=== PATIENT | female | born 1975 | race Caucasian/White ===

== ENCOUNTER → 2016-10-14 | Outpatient (CLI) | payer OTHER ==
--- NOTE | 2016-10-14 12:28 | PN ---
DATE OF SERVICE: 10/14/2016 A 41-year-old lady had been followed in the sleep center for treatment of extremely severe obstructive sleep apnea-hypopnea syndrome. I discussed with the patient results of home sleep apnea test and it showed severe obstructive sleep apnea. Presently, patient has automatic CPAP unit and she brought her CPAP equipment with her. She feels significantly better with CPAP. Sleeps better and feels better during the day. [place] Sleepiness Scale is in normal range 5. I checked her CPAP unit. This is an automatic regimen that ranged between 5 and 20. Average pressure is 13.8, according to the machine. Patient demonstrated 100% compliance with treatment 30 out of 30 nights for more than 4 hours. Average usage is 7.0 hours. No significant leak. It is only 7 L per minute. Apnea-hypopnea index 1.6. Sometimes there is condensation of water in the tube connected to the mask. I believe no condensation of the tube, all the water in the long tube because it is heated, but the short tube which connected to the mask has condensate inside. Apnea-hypopnea index from the machine is only 1.6, which is in a perfect range. MEDICATIONS: Cymbalta, metformin, Singulair. During physical exam, the patient is in no distress. VITAL SIGNS: BP 159/92 on the right arm, 150/85 on the left arm, weight 341, HR 102, temperature 98.5, RR 16, oxygen saturation at room air 97%. HEENT: PERRLA, EOMI. Oropharynx low position of soft palate. Neck: Supple. No JVD. Thyroid is not palpable. LUNGS: Clear to percussion and to auscultation. Good air exchange. No wheezing or rhonchi. HEART: S1, S2 regular. No murmurs, gallops, or rubs. ABDOMEN: Obese. EXTREMITIES: Very minimal ankle edema. [employer]: Awake, alert, and oriented x3. Cranial nerves 2 to 7 intact. There is no fasciculation or atrophy noted. No focal deficits observed. IMPRESSION: 1. Extremely severe obstructive sleep apnea-hypopnea syndrome. Apnea-hypopnea index 81.5 with oxygen desaturation to 81%, on control with CPAP with average pressure around 12 cm of water. Patient demonstrated 100% compliance with treatment benefiting from treatment. 2. Obesity. 3. Diabetes mellitus. 4. Depression. 5. Allergies. PLAN: 1. Continue treatment with CPAP every night for the whole night. 2. I adjusted heating in the machine down to 2. We discussed how to prevent condensation in the tube. 3. Aggressive losing weight program. 4. No driving if feeling any sleepiness. Thank you very much for allowing me to participate in the management of your patient. Sincerely, Hoang Chaudhry MD, PhD, FAASM. Diplomat of [place] [employer], Sleep Medicine Board by [place] [employer] [place] [employer] Substance Abuse Prevention Coordinator of [facility]
== END | disposition home or self-care (01) ==
LOC: SLEEP 10:42
PROVIDERS: ATTEND Internal Medicine
DX: G47.33 Obstructive sleep apnea (adult) (pediatric) (principal); E66.9 Obesity, unspecified; E11.9 Type 2 diabetes mellitus without complications; Z91.09 Other allergy status, other than to drugs and biological substances; F32.9 Major depressive disorder, single episode, unspecified; Z79.84 Long term (current) use of oral hypoglycemic drugs